=== PATIENT | female | born 1970 | race Two or more races ===

== ENCOUNTER 2017-05-01 06:45 | Inpatient (IN) | payer OTHER ==
[~2017-05-01] VITALS: Ht 160 cm; Wt 78.2 kg
[2017-05-01] VITALS (25 sets, daily range): BP systolic 128–139; BP diastolic 69–84; PULSE 86–102; RESP 14–20; Ht 160 cm; Wt 78.2 kg
[2017-05-01] MEDS ORDERED: ETOMIDATE 20 MG INJ ONE (07:00)
[2017-05-01] MEDS ORDERED: SUMA50TA11 PO (07:29)
[2017-05-01] MEDS ORDERED: VASOPRESSIN 20 UNITS INJ ONE (07:50)
--- NOTE | 2017-05-01 07:54 | HPN ---
Date/Time of Note Date/Time of Note DATE: 05/01/17 TIME: 07:53 Interval H&P Admission Note Pt. seen H&P reviewed: No system changes MATT MCGINNIS MD May 01, 2017 07:54
[2017-05-01] MEDS ORDERED: CEFAZOLIN 1 GM INJ ONE (07:57)
[2017-05-01] MEDS ORDERED: FENTAnyl 50 MCG/ML VIAL ONE (07:57)
[2017-05-01] MEDS ORDERED: NEOSTIGMINE 3 MG/3 ML SYRINGE ONE (07:57)
[2017-05-01] MEDS ORDERED: MIDAZOLAM 1 MG/ML 2 ML INJ ONE (07:57)
[2017-05-01] MEDS ORDERED: PROPOFOL 20 ML ONE (07:57)
[2017-05-01] MEDS ORDERED: ROCURONIUM 50 MG INJ ONE (07:57)
[2017-05-01] MEDS ORDERED: DEXAMETHASONE 4 MG/ML 1 ML INJ ONE (07:58)
[2017-05-01] MEDS ORDERED: ONDANSETRON 4 MG INJ ONE (07:58)
[2017-05-01] MEDS ORDERED: morphine SULFATE/PF (10 MG/10 ML) INJ ONE (08:03)
[2017-05-01] MEDS ORDERED: DIPHENHYDRAMINE 50 MG INJ IV PRN ×2 (09:00)
[2017-05-01] MEDS ORDERED: ALBUTEROL 0.083% (NEB) 2.5 MG/3 ML AMP HHN PRN (09:00)
[2017-05-01] MEDS ORDERED: MIDAZOLAM 1 MG/ML 2 ML INJ IV PRN (09:00)
[2017-05-01] MEDS ORDERED: NALBUPHINE HCL (10 MG/1 ML) INJ IV PRN (09:00)
[2017-05-01] MEDS ORDERED: morphine 4 MG/ML VIAL IV PRN (09:00)
[2017-05-01] MEDS ORDERED: ZOLPIDEM 5 MG TAB PO PRN (09:00)
[2017-05-01] MEDS ORDERED: IPRATROPIUM (NEB) 0.5 MG/2.5 ML AMP HHN PRN (09:00)
[2017-05-01] MEDS ORDERED: OXYCODONE/ACETAMINOPHEN (5/325) TAB PO PRN ×2 (09:00)
[2017-05-01] MEDS ORDERED: ONDANSETRON 4 MG INJ IV PRN ×2 (09:00)
[2017-05-01] MEDS ORDERED: FENTAnyl 50 MCG/ML VIAL IV PRN ×3 (09:00)
[2017-05-01] MEDS ORDERED: hydrALAzine 20 MG INJ IV PRN (09:00)
[2017-05-01] MEDS ORDERED: MEPERIDINE 25 MG INJ IV PRN (09:00)
[2017-05-01] MEDS ORDERED: HYDROmorphONE (0.2 MG/ML) 10ML SYG IV PRN ×3 (09:00)
[2017-05-01] MEDS ORDERED: LABETALOL HCL 20MG INJ IV PRN (09:00)
[2017-05-01] MEDS ORDERED: morphine 2 MG INJ IV PRN (09:00)
[2017-05-01] MEDS ORDERED: EPHEDrine SULFATE 50 MG/5 ML SYG IV PRN (09:00)
[2017-05-01] MEDS ORDERED: KETOROLAC 30 MG INJ IV PRN (09:00)
[2017-05-01] MEDS ORDERED: NALOXONE (0.4 MG/ML) INJ IV PRN (09:00)
[2017-05-01] MEDS ORDERED: TRIMETHOBENZAMIDE 100 MG/ML VIAL IM PRN ×2 (09:00)
[2017-05-01] MEDS ORDERED: SUGAMMADEX SODIUM 200 MG/2 ML VIAL IV ONE (09:15)
[2017-05-01] MEDS ORDERED: METOCLOPRAMIDE 10 MG INJ ONE (09:17)
--- NOTE | 2017-05-01 10:13 | SIPON ---
Date/Time of Note Date/Time of Note DATE: 05/01/17 TIME: 10:10 Operative Report Preoperative Diagnosis rapid growing uterine fibroid Postoperative Diagnosis intraoperativ pathologic consult revealed mostlikelly benighwith multiple tsection Operation/Procedure Performed myomectomy Surgeon see signature line financial planning assistant tana Anesthesia: general, spinal Estimated blood loss: 10 - 50 ml's Transfusion Required none Specimen fiboid Grafts/Implants none Complications none MATT MCGINNIS MD May 01, 2017 10:13
[2017-05-01] MEDS: LACTATED RINGER'S 1,000 ML IV SCH ×2 (11:53→20:32)
--- NOTE | 2017-05-01 15:25 | HP ---
Date/Time of Note Date/Time of Note DATE: 05/01/17 TIME: 15:13 Assessment/Plan VTE Prophylaxis VTE Prophylaxis Intervention: ambulation, SCD's Lines/Catheters IV Catheter Type (from Nrsg): Peripheral IV Urinary Cath still in place: Yes Reason Cath still needed: other (indicate) (preop) Assessment/Plan Assessment/Plan A uterine fibroid rapid growing P myomectomy poss FLAVIO, BSO HPI/ROS Admit Date/Time Admit Date/Time May 01, 2017 at 06:45 Hx of Present Illness 46y.o who is known to have uterine fibroid on november 2016 u/s which showed fundal subserosal uterine fibroid ,measuring 11cmwhich rather rapidly growing reach almost 16cm in 3mo. here for myomectomy possible FLAVIO BSO discussed in detail regarding procedure and option for treatment , risks from minor to serious from surgery and aneshesia. patient fully understood in detail ,agree to receive surgical intervention . ROS pressure pain no other subjective symptoms Constitutional: improved, no complaints, No chills, No diaphoresis, No disoriented, No fatigue, No febrile, No nausea , No other, No poor po, No weight change Eyes: no complaints ENT: no complaints Respiratory: no complaints Cardiovascular: no complaints Gastrointestinal: no complaints Genitourinary: no complaints Musculoskeletal: no complaints, other (abdominal pain) Skin: no complaints Neurologic: no complaints Endocrine: no complaints Psychological: nl mood/affect, no complaints Immunologic: no complaints PMH/Family/Social Past Medical History Medical History: no pertinent history Past Surgical History rhinoplasty Family History Significant Family History: no pertinent family hx Social History Alcohol Use: none Smoking Status: Former smoker Exam/Review of Systems Vital Signs Vitals Vital Signs Date Time Temp Pulse Resp B/P Pulse Ox O2 Delivery O2 Flow Rate FiO2 05/01/17 14:45 97.8 94 20 137/76 98 Nasal Cannula 2.0 Exam Genitourinary - Female: uterus (markedly enlarged,16cm fundal fibroid solitary) Musculoskeletal: nl extremities to inspection 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, nl mental status, nl speech, nl strength Medications Medications Current Medications Morphine Sulfate (morphine) 2 mg Q2H PRN IV PAIN LEVEL 1-5; Start 05/01/17 at 09:00; Stop 05/02/17 at 08:11 Morphine Sulfate (morphine) 4 mg Q2H PRN IV PAIN LEVEL 6-10; Start 05/01/17 at 09:00; Stop 05/02/17 at 08:11 Ketorolac Tromethamine (Toradol) 30 mg Q6H PRN IV PAIN LEVEL 6-10; Start at 09:00; Stop 05/02/17 at 08:11 Diphenhydramine HCl (Benadryl) 25 mg Q4H PRN IV PRURITUS; Start 05/01/17 at 09: 00; Stop 05/02/17 at 08:11 Nalbuphine HCl (Nubain) 10 mg Q4H PRN IV PRURITUS; Start 05/01/17 at 09:00; Stop 05/02/17 at 08:11 Ondansetron HCl (Zofran Inj) 4 mg Q6H PRN IV NAUSEA AND/OR VOMITING; Start 05/01/17 at 09:00; Stop 05/02/17 at 08:11 Trimethobenzamide HCl (Tigan) 200 mg Q6H PRN IM NAUSEA AND/OR VOMITING; Start 05/01/17 at 09:00; Stop 05/02/17 at 08:11 Naloxone HCl 0.2 mg 0.2 mg Q2M PRN IV FOR RESP RATE 8 OR LESS; Start 05/01/17 at 09:00; Stop 05/02/17 at 08:11 Lactated Ringer's (Lr) 1,000 ml @ 125 mls/hr Q8H IV Last administered on t 11:53; Admin Dose 125 MLS/HR; Start 05/01/17 at 10:30 MATT MCGINNIS MD May 01, 2017 15:24
[2017-05-02] MEDS: SUMATRIPTAN 50 MG TAB PO PRN ×2 (01:11→13:02)
[2017-05-02 02:15] VITALS: BP 133/68; RESP 18
[2017-05-02] MEDS: LACTATED RINGER'S 1,000 ML IV SCH ×2 (02:30→03:55)
--- NOTE | 2017-05-02 06:17 | OPR ---
DATE OF OPERATION: 05/01/2017 PREOPERATIVE DIAGNOSIS: Uterine fibroid which is rapidly growing. POSTOPERATIVE DIAGNOSES: Uterine fibroid which is rapidly growing and pathology consultation intrao perative done and most likely benign after the multiple dissection. PROCEDURE: Myomectomy. ANESTHESIA: Spinal and general. ANESTHESIOLOGIST: . SURGEON: Evan Younger MD. DELIVERY MAN: Dr. Kong. ESTIMATED BLOOD LOSS: Less than 50 mL. DESCRIPTION OF PROCEDURE: Under proper induction of spinal anesthesia for the postoperative pain ma nagement and then under general anesthesia, the patient was placed in the frog position. Sibley cath eter was introduced into bladder under sterile condition and the vaginal prep done. Repositioned to supine. Abdominal wall was prepped and draped in usual aseptic manner. A transverse incision was made approximately 2 fingers above the pubic rami. Incision was carried down through the subcutaneo us tissue to the anterior recti fascia which was incised transversely in length of the incision. Fa cial flap was created by blunt and sharp dissection of tendinous attachment upward and downward and the 2 rectus muscles split in midline and peritoneal cavity was entered. Pelvic organ was explored. The uterus itself is normal in size and on top of the fundus, there is a subserous uterine fibroid which measures approximately almost 20 cm in diameter which was attached to the entire uterine sero sa on the fundus, of which surface was markedly irregular with high . At this point the fibroi d was exteriorized by using multiple Bacilio clamps and pulling out through the incision and on the ba se of the fibroid diluted Pitressin was injected to reduce the bleeding from the surgery. After inj ecting base of the uterine fibroid, the circular incision was made on the uterine serosa and removed the entire uterine fibroid from the fundus. Defect on the uterus was grasped with multiple Allis a nd the defect was closed with a single layer using 0 chromic catgut with a GI needle in continuous m tracy. No bleeder was noted. The piece of Interceed was used for preventing the adhesion. After t he fibroid was removed, the pathologist was called for the frozen section which was reported most li leonel benign. At this point, procedure was completed as a myomectomy and both ovaries and uterus reid eared to be normal and fallopian tubes also appeared to be normal. Parietal peritoneum was closed u sing 0 chromic catgut in continuous manner. Muscle closed with 0 chromic catgut in continuous michael r. Fascia was closed with #1 Vicryl in continuous manner in 2 segments. The subcutaneous tissue ir rigated with water. This layer was approximated with a 2-0 plain in continuous manner. Skin was cl osed with Insorb. Steri-Strips applied. Pressure dressing applied. Estimated blood loss approxima tely 50 mL and patient withstood procedure and was sent to recovery room in stable condition. Dictated By: EVAN RODRIGUEZ/MARTIR Conf#: [id number] DID#: [id number] CC: Dr. Kong;*End*
[2017-05-02 07:37] VITALS: BP 130/69; RESP 16
--- NOTE | 2017-05-02 10:40 | PN ---
Date/Time of Note Date/Time of Note DATE: 05/02/17 TIME: 10:38 Assessment/Plan Lines/Catheters IV Catheter Type (from Nrsg): Peripheral IV Sibley in Place (from Nrsg): Yes Subjective 24 Hr Interval Summary S mild pain no n&v O vss afebrile abdomen soft wound dry calf neg for tenderness A stable P ambulate d/s home in am Exam/Review of Systems Vital Signs Vitals Vital Signs Date Time Temp Pulse Resp B/P Pulse Ox O2 Delivery O2 Flow Rate FiO2 05/02/17 07:37 98.7 88 16 130/69 94 05/01/17 17:45 Nasal Cannula 2.0 Intake and Output 05/01/17 05/01/17 05/02/17 15:00 23:00 07:00 Intake Total 2200 ml 1000 ml 2745 ml Output Total 250 ml 2850 ml Balance 1950 ml 1000 ml -105 ml MATT MCGINNIS MD May 02, 2017 10:40
[2017-05-02 10:54] LABS: BASOPHILS % 0.1 % (0.0-2.0); EOSINOPHILS % 0.6 % (0.0-7.0); HEMOGLOBIN 12.1 g/dl (12.0-16.0); LYMPHOCYTES # 1.9 10^3/ul (0.8-2.9); LYMPHOCYTES % 27.5 % (15.0-51.0); MEAN CORPUSCULAR HEMOGLOBIN 28.1 pg (29.0-33.0); MEAN CORPUSCULAR HGB CONC 32.7 g/dl (32.0-37.0); MEAN CORPUSCULAR VOLUME 85.8 fl (82.0-101.0); MONOCYTE # 0.5 10^3/ul (0.3-0.9); MONOCYTES % 7.4 % (0.0-11.0); NEUTROPHIL # 4.4 10^3/ul (1.6-7.5); NEUTROPHILS % 64.1 % (39.0-77.0); PLATELET COUNT 117 10^3/UL (140-415); RED BLOOD COUNT 4.31 10^6/ul (4.20-5.40); RED CELL DISTRIBUTION WIDTH 14.5 % (11.5-14.5); WHITE BLOOD COUNT 6.9 10^3/ul (4.8-10.8)
[2017-05-02] MEDS ORDERED: morphine 2 MG INJ IV STA (12:34)
[2017-05-02] MEDS: IBUPROFEN 600 MG TAB PO SCH ×2 (12:58→19:02)
[2017-05-02 13:13] VITALS: BP 133/82; RESP 18
[2017-05-02 15:37] LABS: ADD UMIC NO; UR ASCORBIC ACID NEGATIVE (NEGATIVE); UR BILIRUBIN (Dip) NEGATIVE (NEGATIVE); UR BLOOD (Dip) NEGATIVE (NEGATIVE); UR CLARITY CLEAR (CLEAR); UR COLOR STRAW (YELLOW); UR GLUCOSE (Dip) NEGATIVE (NEGATIVE); UR KETONES (Dip) NEGATIVE (NEGATIVE); UR LEUKOCYTE ESTERASE (Dip) NEGATIVE Leu/ul (NEGATIVE); UR NITRITE (Dip) NEGATIVE (NEGATIVE); UR SPECIFIC GRAVITY (Dip) 1.005 (1.003-1.030); UR TOTAL PROTEIN (Dip) NEGATIVE (NEGATIVE); UR UROBILINOGEN (Dip) NEGATIVE (NEGATIVE)
[2017-05-02] MEDS: HYDROCODONE/APAP (5/325) TAB PO PRN ×2 (16:30→22:15)
[2017-05-02 21:43] VITALS: BP 127/64; RESP 18
[2017-05-03] MEDS: IBUPROFEN 600 MG TAB PO SCH ×3 (00:21→13:10)
[2017-05-03 02:00] VITALS: BP 128/74; RESP 18
[2017-05-03 08:21] VITALS: BP 138/76; RESP 22
[2017-05-03] MEDS: HYDROCODONE/APAP (5/325) TAB PO PRN ×2 (09:27→17:07)
--- NOTE | 2017-05-03 12:16 | PD.PPDC ---
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 Diagnosis Final Diagnosis: uterine fibroid Condition Patient Condition: Stable Diet Diet: Resume Regular Diet Activity/Restrictions Activity: May Shower Restrictions: No Lifting Minimize Stair-climbing No Sexual Activity Nothing in the Vagina No [place] No Tampons, douche Wound/Drain Care Instructions Wound/Drain Care Instructions: Wash with soap and water Keep clean and dry Follow-up Follow-up with Physician: Week/Weeks Return to clinic for ENDOSCOPY TECHNICAN Instructions: Fever greater than 101 Chills Worsening abdominal pain Excessive Vaginal Bleeding More than 2 pads per hour Unable to tolerate diet Surgical Instructions: Incisional Drainage Incisional Redness MATT MCGINNIS MD May 03, 2017 12:16
--- NOTE | 2017-05-03 12:20 | DS ---
Date/Time of Note Date/Time of Note DATE: 05/03/17 TIME: 12:17 Discharge Summary Admission/Discharge Info Admit Date/Time May 01, 2017 at 06:45 Discharge Date/Time [id number] Discharge Diagnosis uterine fibroid Patient Condition: Stable Consults intraop pathology Procedures myomectomy Hx of Present Illness 46y.o who is known to have uterine fibroid on november 2016 u/s which showed fundal subserosal uterine fibroid ,measuring 11cmwhich rather rapidly growing reach almost 16cm in 3mo. here for myomectomy possible FLAVIO BSO discussed in detail regarding procedure and option for treatment , risks from minor to serious from surgery and aneshesia. patient fully understood in detail ,agree to receive surgical intervention . Hospital Course unevenful ambulating ok tolerating diet well Home Meds Reported Medications Sumatriptan Succinate* (Imitrex*) 50 Mg Tablet, 50 MG PO Y for HEADACHE, TAB May repeat after 2 hours if needed; MAX 200 mg/24 hours 05/01/17 Follow-up Plan RTO in 2w Primary Care Provider Jazmyne Hayes Time spent on discharge: < 30 minutes Pending Labs Laboratory Tests Test 05/02/17 13:00 Urine Color STRAW (YELLOW) Urine Clarity CLEAR (CLEAR) Urine pH 8.0 (5.0-9.0) Urine Specific [place] 1.005 (1.003-1.030) Urine Ketones NEGATIVEmg/dL (NEGATIVE) Urine Nitrite NEGATIVEmg/dL (NEGATIVE) Urine Bilirubin NEGATIVEmg/dL (NEGATIVE) Urine Urobilinogen NEGATIVEmg/dL (NEGATIVE) Urine Leukocyte Esterase NEGATIVELeu/ul (NEGATIVE) Urine Hemoglobin NEGATIVEmg/dL (NEGATIVE) Urine Glucose NEGATIVEmg/dL (NEGATIVE) Urine Total Protein NEGATIVEmg/dl (NEGATIVE) Microbiology Date/Time Source Procedure Growth Status 05/02/17 13:00 Catheter Urine Urine Culture - Preliminary NO GROWTH AFTER 24 HOURS Resulted MATT MCGINNIS MD May 03, 2017 12:20
[2017-05-03 13:25] VITALS: BP 142/79; RESP 18
[2017-05-03 14:00] VITALS: BP 140/72; RESP 18
== END 2017-05-03 17:50 | disposition home or self-care (01) | DRG 743 ==
LOC: REC 06:45 → EDSTATUS 08:00 → MS2 11:15
PROVIDERS: ADMIT Obstetrics & Gynecology; ATTEND Obstetrics & Gynecology
PROC: 0UB90ZZ Excision of Uterus, Open Approach (ICD-10-PCS; principal; 2017-05-01 08:00)
DX: D25.2 Subserosal leiomyoma of uterus (principal)
CPT/HCPCS: 81003; 85025; 86850; 86900; 86901; 86920; 87086; 88307; J0690; J1100; J1200; J2250; J2270; J2274; J2405; J2710; J2765; J3010; J7120

== ENCOUNTER 2018-07-13 08:11 | Day surgery (SDC) | payer OTHER ==
[~2018-07-13] VITALS: Ht 157.5 cm; Wt 82.9 kg
[~2018-07-13 08:11] MED LIST: SUMA50TA2 PO
[2018-07-13 09:34] VITALS: Ht 157.5 cm; Wt 82.9 kg
[2018-07-13] MEDS ORDERED: PANTOPRAZOLE (09:42)
[2018-07-13 09:49] VITALS: BP 136/99; PULSE 92; RESP 19
[2018-07-13] MEDS ORDERED: FENTAnyl 50 MCG/ML VIAL ONE (10:38)
[2018-07-13] MEDS ORDERED: MIDAZOLAM 1 MG/ML 2 ML INJ ONE ×2 (10:38)
[2018-07-13 10:59] VITALS: BP 133/97; PULSE 78; RESP 20
== END 2018-07-13 12:19 | disposition home or self-care (01) ==
LOC: GIL 08:11
PROVIDERS: ATTEND Internal Medicine Gastroenterology
DX: Z12.11 Encounter for screening for malignant neoplasm of colon (principal); K29.50 Unspecified chronic gastritis without bleeding; D12.5 Benign neoplasm of sigmoid colon; K44.9 Diaphragmatic hernia without obstruction or gangrene; K21.9 Gastro-esophageal reflux disease without esophagitis
CPT/HCPCS: 43239; 45380; 84703; 88305; 88312; J2250; J3010; Z7610